=== PATIENT | female | born 1935 | race Caucasian/White ===

== ENCOUNTER 2018-12-14 16:19 | Observation (INO) | payer MEDICARE ==
[2018-12-14 17:51] LABS: CKMB 4.8 ng/mL (0-6.6)
--- NOTE | 2018-12-14 19:35 | PDOC.FPRHP ---
- History of Present Illness Chief Complaint: subjective fevers and SOB History of Present Illness: 83yo F with pmh of afib presents for 1 day hx of sob and subjective fevers. Reports last night she noticed feeling SOB while laying flat on bed. This was alleviated by propping herself up with pillows though she states when she got up out of bed she became dizzy. She has experience moderate dizziness and subjective fevers and chills ever since. Denies that the room is spinning. She also reports that she has had dysuria for 3 days now. She also reports she has only been drinking 3 8oz cups of water per day. ED Course: 1L IVF, UA, 1g rocephin in [place] - Allergies/Adverse Reactions Allergies Allergy/AdvReac Type Severity Reaction Status Date / Time Iodinated Contrast- Oral and Allergy Verified 12/14/18 20:14 IV Dye - Home Medications Medication Instructions Recorded Confirmed Type Aspirin [Aspir-Low] 81 mg PO DAILY 12/14/18 12/14/18 History Calcium Carbonate [Caltrate 600] 1 tab PO DAILY 12/14/18 12/14/18 History Carvedilol 3.125 mg PO DAILY 12/14/18 12/14/18 History Diltiazem HCl [Cardizem] 60 mg PO QID 12/14/18 12/14/18 History Gabapentin 300 mg PO DAILY 12/14/18 12/14/18 History Lisinopril/Hydrochlorothiazide 1 tablet PO BID 12/14/18 12/14/18 History [Lisinopril-Hctz 20-12.5 mg Tab] Polyethylene Glycol 3350 [Miralax] 17 gm PO DAILY PRN 12/14/18 12/14/18 History Simvastatin [Zocor] 1 tab PO DAILY 12/14/18 12/14/18 History - History PMHx: afib, htn, hld, hypothyroid, hx of breast cancer PSHx: R knee, mastectomy, lumpectomy, cattharact FHx: non contributory Social: denies etoh/tobacco/drugs - Review of Systems General: reports: fever/chills, fatigue Eyes: denies: eye pain, vision changes ENT: denies: nasal congestion, rhinorrhea Respiratory: reports: cough (chronic), shortness of breath Cardiovascular: denies: chest pain, palpitation Gastrointestinal: denies: nausea, vomiting, diarrhea, constipation, abdominal pain, GI bleeding Genitourinary: reports: dysuria. denies: incontinence, polyuria, discharge Skin: denies: rashes, lesions Musculoskeletal: denies: pain, tenderness, swelling Neurological: denies: syncope, seizure Psychological: denies: anxiety, depression - Vital signs BP: [143/59] HR: [69] RR: [22 in [place], [address] [facility]] Tmax: [98.6] Pox: [96]% on [ra] Wt: [86] - Physical Exam Constitutional: NAD, awake, alert and oriented HEENT: normocephalic and atraumatic, PERRLA, EOMI, conjunctiva clear, grossly normal vision, TM's clear and intact, grossly normal hearing Neck: supple, trachea midline Chest: no-tender to palpation Heart: RRR, normal S1/S2 Lungs: CTAB, no respiratory distress, good air movement, no wheezing Abdomen: soft, non-tender, bowel sounds present, no masses/distention, no hernias Musculoskeletal: normal structure, normal tone -Musculoskeletal: no meningeal signs Neurological: no focal deficit, normal sensation Skin: no rash/lesions, good turgor, capillary refill <2 seconds Heme/Lymphatic: no unusual bruising or bleeding, no purpura, no petechia Psychiatric: normal mood and affect, good judgment and insight FMR H&P: Results - Labs Lab results: CK-MB (CK-2) 4.8 ng/mL (0-6.6) 12/14/18 16:49 FMR H&P: A/P - Problem List (1) SIRS (systemic inflammatory response syndrome) Current Visit: Yes Status: Acute Code(s): R65.10 - SIRS OF NON-INFECTIOUS ORIGIN W/O ACUTE ORGAN DYSFUNCTION (2) UTI (urinary tract infection) Current Visit: Yes Status: Acute (3) CHANDRA (acute kidney injury) Current Visit: Yes Status: Acute Code(s): N17.9 - ACUTE KIDNEY FAILURE, UNSPECIFIED (4) HTN (hypertension) Current Visit: Yes Status: Acute Code(s): I10 - ESSENTIAL (PRIMARY) HYPERTENSION (5) HLD (hyperlipidemia) Current Visit: Yes Status: Acute Code(s): E78.5 - HYPERLIPIDEMIA, UNSPECIFIED (6) Hypothyroid Current Visit: Yes Status: Acute Code(s): E03.9 - HYPOTHYROIDISM, UNSPECIFIED - Plan SIRS +, without a source vs 2/2 UTI A- Pt was tachypneic at 22 in [place] and has leukocytosis and elevated LA. She is symptomatic for UTI but UA gathered in [place] was dirty catch. Pt received dose of rocephin in [place] so repeat UA and UCx of new sample would be unhelpful. No other clear source of infection at this time. P- UCx of [place] urine sample, call to lab has been made and order put in. - continue rocephin at this time - gently, LR 100/hr - await UCx - procal - flu swab Possible CHF A- Pt has hx of afib but no CHF. Reports orthopnea on hx but does not appear to be fluid overload. P- BNP - will be mindful while giving fluids CHANDRA A- Cr 1.31, pt has been drinking 24fl oz water daily, so likely prerenal P- LR as listed above Afib -home meds HTN -home meds HLD -home meds Hypothyroid -home meds CODE: DNAR Diet: HH Fluids: LR 100/hr FMR H&P: Upper Level - Pertinent history 83 yo WF PMH HTN, HLD, A-fib, breast cancer s/p mastectomy, and colon cancer s/ p resection. Presents with 1 day history of SOB, generalized weakness, decreased PO intake, and dizziness. Reports subjective fever or chills. Reports burning with urination. Denies flu exposure. States her SOB was improved with elevation of the head of the bed. States she normally sleeps on 2 pillows but needed 4 last night. Transferred from [facility] ER when found to have indeterminate troponins. [place] ER: Labs, EKG, CXR, CT-Brain, ASA, Rocephin 1g, APAP 1g, NS 750mL, [place] [facility]: Repeat troponin - Pertinent findings Vitals: max RR 22, otherwise WNL GEN: NAD CV: RRR, 3/6 systolic murmur, Pulm: CTA-B Ext: no edema Labs: WBC 18, Lactate 2.4, Trop 0.040, 0.038, Cr 1.31 CXR: No acute processes CT Brain- No acute processes EKG: NSR - Plan Date/Time: 12/14/181930 I, Milton Celis MD, have evaluated this patient and agree with findings/plan as outlined by internal medicine hospitalist resident. Pertinent changes/additions are listed here. 1. SIRS: No obvious source. Will add culture to urine from [place] ER. Check procalcitonin and influenza swab. IV LR at 100 mL/hr. continue emperic abx of rocephin until culture returns. 2. CHANDRA: IV LR, trend BMP 3. Indeterminate troponin: trend x3, check BNP. 4. See internal medicine hospitalist note for chronic condition management. 5. Diet: HH 6. PPx: Fall 7. CODE: DNR/DNI Dispo: obs, tele, <[address] De León. Addendum - Attending - Attending Attestation Date/Time: 12/14/18 0876 I personally evaluated the patient and discussed the management with Dr. Alcocer. I agree with the History, Examination, Assessment and Plan documented above with any addition or exceptions noted below.
[2018-12-14] MEDS ORDERED: Polyethylene Glycol 3350 17 GM Packet PO PRN (19:55)
[2018-12-14] MEDS: Lactated Ringer's 1,000 ML IV SCH (19:58)
[2018-12-14 20:47] LABS: Troponin I 0.026 ng/mL (< 0.028)
[2018-12-14] MEDS: Lisinopril/Hydrochlorothiazide 20 mg/12.5 mg Tablet PO SCH (21:27)
[2018-12-15] MEDS: Acetaminophen 325 MG TAB PO PRN ×2 (03:04→14:01)
[2018-12-15 05:13] LABS: #Eosinphils 0.1 thou/uL (0.0-0.7); #Lymphocytes 0.9 thou/uL (1.20-3.40); #Monocytes 0.8 thou/uL (0.11-0.59); #Neutrophils 7.3 thou/uL (1.40-6.50); %Basophils 0.2 % (0.0-1.0); %Eosinophils 0.7 % (0.0-10.0); %Lymphocytes 9.6 % (21.0-51.0); %Neutrophils 80.5 % (42.0-75.0); Hemoglobin 10.6 g/dL (12.0-16.0); Mean Corpuscular HGB CONC 32.3 g/dL (32.0-36.0); Mean Corpuscular Hemoglobin 27.8 pg (27.0-31.0); Mean Corpuscular Volume 86.2 fL (78.0-98.0); Mean Platelet Volume 7.9 fL (7.4-10.4); Platelet Count 211 thou/uL (130-400); RBC Distribution Width 14.7 % (11.5-14.5); Red Blood Cell (RBC) Count 3.79 mill/uL (4.20-5.40); White Blood Cell (WBC) Count 9.1 thou/uL (4.8-10.8)
[2018-12-15 05:29] LABS: Anion Gap 14 mmol/L (10-20); BUN (Urea Nitrogen) 18 mg/dL (9.8-20.1); Calc. Creatinine Clearance 72 mL/min (70-130); Calcium 8.5 mg/dL (7.8-10.44); Carbon Dioxide 22 mmol/L (23-31); Chloride 99 mmol/L (98-107); Estimated GFR-MDRD 66; Glucose 86 mg/dL (83-110); Potassium 3.6 mmol/L (3.5-5.1); Sodium 131 mmol/L (136-145)
[2018-12-15] MEDS: Lactated Ringer's 1,000 ML IV SCH (06:16)
--- NOTE | 2018-12-15 06:18 | PDOC.FM ---
- Subjective Subjective: Patient reports feeling much better this AM. Denies any fever/chills, SOB, chest pain, or N/V/D. Does endorse improved dysuria. Also endorses a "sinus headache" that was resolved with tylenol and watery eyes. Says she normally use flonase at home for this. - Objective MAR Reviewed: Yes Vital Signs & Weight: Vital Signs (12 hours) Temp Pulse Resp BP BP BP Pulse Ox 12/15/18 04:00 76 18 146/60 H 92 L 12/14/18 23:38 98.3 F 68 16 134/63 94 L 12/14/18 21:27 70 146/66 H 12/14/18 20:30 146/66 H 12/14/18 19:02 98 F 70 16 186/74 H 94 L Weight Weight 86.183 kg Result Diagrams: 12/15/18 04:37 12/15/18 04:37 Phys Exam - Physical Examination Constitutional: NAD HEENT: moist MMs, oral pharynx no lesions watery eyes on exam Neck: no nodes, supple, full ROM Respiratory: no wheezing, no rales, no rhonchi, clear to auscultation bilateral Cardiovascular: RRR, no significant murmur Musculoskeletal: no edema, pulses present Neurological: non-focal, moves all 4 limbs Psychiatric: normal affect, A&O x 3 Skin: no rash, normal turgor Dx/Plan (1) Elevated brain natriuretic peptide (BNP) level Code(s): R79.89 - OTHER SPECIFIED ABNORMAL FINDINGS OF BLOOD CHEMISTRY Status : Acute (2) Atrial fibrillation Code(s): I48.91 - UNSPECIFIED ATRIAL FIBRILLATION Status: Chronic (3) HLD (hyperlipidemia) Code(s): E78.5 - HYPERLIPIDEMIA, UNSPECIFIED Status: Chronic (4) HTN (hypertension) Code(s): I10 - ESSENTIAL (PRIMARY) HYPERTENSION Status: Chronic (5) Hypothyroid Code(s): E03.9 - HYPOTHYROIDISM, UNSPECIFIED Status: Chronic (6) UTI (urinary tract infection) Status: Acute - Plan Plan: SIRS +, without a source vs. 2/2 UTI - Pt was tachypneic w/ a RR of 22 in [place] w/ leukocytosis of 18 and an elevated LA of 2.6. Afebrile & HD stable since admission. She does report dysuria x 3 days but UA n [place] was reported as a dirty catch. Culture pending. s/p 1 dose of rocephin in [place] as well as 1L of NS. No other clear source of infection at this time. CXR read as negative at outside ED for any consolidation, effusions, etc. Procal 2.13 on admission suggestive of likely sepsis. Will repeat procal & lactate this AM s/p fluids & abx overnight. Flu swab negative. - Will continue rocephin at this time pending repeat procal. - Will encourage increased PO hydration & de-escalate fluids as tolerated by the patient & pending ECHO results as patient could have undiagnosed CHF. - Will monitor vitals closely & continue PRN tylenol for pain &/or fever. Possible CHF - Pt has hx of afib but no CHF. Reports orthopnea on hx but does not appear to be fluid overloaded. Will consider repeat CXR s/p IVFs overnight. - BNP elevated at 224, no values available for comparison. - Will be judicious w/ IV fluids & get an ECHO today. CHANDRA, resolved - Cr 1.31 on admission, likely prerenal from mild volume depletion 2/2 decreased PO intake. WNLs this AM at 0.83 s/p 1L NS bolus & IVFs overnight. - Will consider de-escalating IVFs today & encourage PO intake. Afib -home meds HTN -home meds HLD -home meds Hypothyroid -home meds CODE: DNAR Diet: HH Fluids: LR @ 100/hr Abx: Rocephin (12/14) GI PPx: none DVT PPx: lovenox Addendum - Attending - Attending Attestation Date/Time: 12/15/18 1129 I personally evaluated the patient and discussed the management with Dr. Herrmann. I agree with the History, Examination, Assessment and Plan documented above with any addition or exceptions noted below. The patient's urine culture was pending. Echo is ordered as bnp was elevated. Pt will be transitioned to po antibiotics and f/u with PCP.
[2018-12-15] MEDS ORDERED: Simvastatin 20 MG TAB PO SCH (09:00)
[2018-12-15] MEDS ORDERED: Carvedilol 3.125 MG TAB PO SCH (09:00)
[2018-12-15] MEDS ORDERED: Gabapentin 300 MG CAP PO SCH (09:00)
[2018-12-15] MEDS ORDERED: Atorvastatin Calcium 10 MG TAB PO SCH (09:00)
[2018-12-15] MEDS ORDERED: Enoxaparin Sodium 40 MG/0.4 ML SYRINGE SC SCH (09:00)
[2018-12-15] MEDS ORDERED: Fluticasone Propionate Nasal Spray 16 gm Bottle NASAL SCH (09:00)
[2018-12-15] MEDS ORDERED: Calcium Carbonate 600 MG TAB PO SCH (09:00)
[2018-12-15] MEDS ORDERED: Aspirin 81 mg Enteric Coated Tablet PO SCH (09:00)
--- NOTE | 2018-12-15 09:03 | RAD ---
TWO VIEWS CHEST: HISTORY: Pneumonia. FINDINGS: PA and lateral views of the chest are obtained on 12/15/2018. Comparison is made to previous exam from 12/14/2018. Two views chest demonstrate EKG leads seen over the chest. There is marked osteoporosis seen. No ev idence of effusions, pneumonia, or pneumothorax seen. No evidence of effusions seen. IMPRESSION: No definite evidence of acute intrathoracic abnormality is seen. Surgical clips seen over the right axillary region. The patient has had a previous right-sided mastectomy. POS: ROD
[2018-12-15] MEDS: Lisinopril/Hydrochlorothiazide 20 mg/12.5 mg Tablet PO SCH (09:27)
[2018-12-15 16:31] VITALS: BP 144/63; TEMP 99.2
[2018-12-15] MEDS ORDERED: cefTRIAXone\\ROCEPHIN 1 GM in Sodium Chloride 0.9% 100 ML IVPB SCH (17:00)
--- NOTE | 2018-12-16 14:24 | DIS ---
DATE OF ADMISSION: 12/14/2018 DATE OF DISCHARGE: 12/15/2018 RESIDENT: Dana Herrmann MD ADMITTING ATTENDING: Franco De León MD DISCHARGE ATTENDING: Louisa Cash MD CONSULTS: None. PROCEDURES: 1. Brain CT on 12/14/2018, which showed no CT evidence of an acute intracranial process. 2. Chest x-ray on 12/14/2018, which showed no evidence of acute cardiopulmonary disease. 3. Chest x-ray on 12/15/2018, which showed no definite evidence of acute intrathoracic abnormality. 4. Echocardiogram on 12/15/2018, which showed an estimated ejection fraction of 55% to 60% with a mildly dilated left atrium. Impaired relaxation compatible with diastolic dysfunction was also noted with mild mitral, aortic, and tricuspid valve regurgitation. Aortic valve leaflets were also noted to be somewhat thickened. PRIMARY DIAGNOSES: 1. Sepsis secondary to urinary tract infection. 2. Possible congestive heart failure. 3. Acute kidney injury, secondary to mild volume depletion. 4. Chronic atrial fibrillation. 5. Indeterminately elevated troponin. 6. Elevated lactate. SECONDARY DIAGNOSES: 1. Chronic atrial fibrillation. 2. Hypertension. 3. Hyperlipidemia. 4. Hypothyroidism. DISCHARGE MEDICATIONS: 1. MiraLAX 17 g p.o. daily p.r.n. 2. Lisinopril/HCTZ 20/12.5 mg tablets, 1 tab p.o. b.i.d. 3. Simvastatin 20 mg p.o. daily. 4. Gabapentin 300 mg p.o. daily. 5. Cardizem 60 mg p.o. q.i.d. 6. Carvedilol 3.125 mg p.o. daily. 7. Calcium carbonate 1 tab p.o. daily, 600 mg tab. 8. Aspirin 81 mg p.o. daily. 9. Bactrim DS 1 tablet p.o. b.i.d. for 3 days. DISCONTINUED MEDICATIONS: None. HOSPITAL COURSE: The patient is an 83-year-old female with a past medical history significant for hypertension and chronic atrial fibrillation, who presented to the emergency department with a 1-day history of progressively worsening shortness of breath with associated fever and lightheadedness, as well as dysuria for approximately 3 days prior to presentation. The patient initially presented to the [facility], where she was noted to be hypertensive with a blood pressure of 150/76 and was eventually tachypneic, breathing approximately 22 times a minute. Vitals were otherwise within normal limits. Routine lab work was obtained including CBC, CMP and UA, which were significant for elevated white blood cell count of 18, elevated lactic acid level of 2.4, BUN and creatinine of 26 and 1.31, and indeterminately elevated troponin of 0.048. Urinalysis was remarkable for trace of blood, small leukocyte esterase, 4 to 6 squamous cells, and rare to few bacteria. In addition, chest x-ray and brain CT were obtained, both of which were negative for any acute processes. The patient was therefore determined to be septic or have positive SIRS criteria in the presence of a likely UTI and was therefore transferred to [facility] for further evaluation. On presentation to the [facility], the patient's vitals were noted to be within normal limits with the exception of a mildly elevated blood pressure and additional labs including BNP and procalcitonin were ordered, both of which were elevated at 224 and 2.13. The patient received 1 L of IV fluids and 1 g of Rocephin in the [facility] before transfer, so fluids were therefore continued with lactated Ringer's at 100 mL an hour. The patient was admitted for close observation overnight for possible sepsis secondary to UTI. The following morning, the patient was scheduled to receive a repeat chest x-ray and echocardiogram was ordered to assess for any possible CHF as the patient endorsed shortness of breath or orthopnea. A repeat chest x-ray did not show any acute process and her echocardiogram did note some likely diastolic dysfunction with an EF of 55% to 60%. Also, of note, the patient's lab abnormalities had significantly improved after receiving IV fluids overnight including troponin of 0.026 within normal limits, procalcitonin level of 1.62, and BUN and creatinine of 18 and 0.83. Her IV fluids were therefore discontinued and after getting her echocardiogram, the patient requested to be discharged home with close followup with her PCP. Therefore, due to the patient's request and the fact that she was hemodynamically stable and her lab abnormalities had significantly improved, she was discharged home on p.o. antibiotics for 3 days pending the results of her urine culture. Of note, the patient's urine culture results resulted on 12/18/2018 and were notable for 75,000 to 200,000 CFU's of mixed skin and enteric edda. No sensitivities were reported. DISCHARGE INSTRUCTIONS: 1. Location: Home. 2. Diet: Heart healthy diet. 3. Activity: As tolerated. No restrictions. 4. Followup: The patient was instructed to follow up with her primary care provider, Dr. Miki Blackwell within 1 week of discharge. Job ID: [id number]
--- NOTE | 2018-12-17 21:00 | EKG ---
Test Reason : Blood Pressure : / mmHG Vent. Rate : 068 BPM Atrial Rate : 068 BPM P-R Int : 206 ms QRS Dur : 064 ms QT Int : 410 ms P-R-T Axes : 070 -02 024 degrees QTc Int : 435 ms Normal sinus rhythm Septal infarct , age undetermined Abnormal ECG Confirmed by LUIS MANUEL LEON, CONSTANTINE Valladares ([id number]), web content editor KASSIE FLORES ([id number]) on 12/17/2018 9:00:28 PM Referred By: Confirmed By:CONSTANTINE ISSA MD
== END 2018-12-15 16:56 | disposition home or self-care (01) ==
LOC: ERS 16:19 → 2SW 17:07
PROVIDERS: ADMIT Family Medicine; ATTEND Family Medicine
DX: R65.10 Systemic inflammatory response syndrome (SIRS) of non-infectious origin without acute organ dysfunction (principal); N39.0 Urinary tract infection, site not specified; I48.91 Unspecified atrial fibrillation; I10 Essential (primary) hypertension; E78.5 Hyperlipidemia, unspecified; E03.9 Hypothyroidism, unspecified; N17.9 Acute kidney failure, unspecified; R79.89 Other specified abnormal findings of blood chemistry; Z66 Do not resuscitate; Z79.82 Long term (current) use of aspirin; Z79.899 Other long term (current) drug therapy; Z91.041 Radiographic dye allergy status
CPT/HCPCS: 71046; 80048; 82553; 83880; 84145 ×2; 84484; 85025; 87804 ×2; 93005; 93306; 96360; 96361 ×2; 96372; 99285; G0378 ×2; 36415; J1650

== ENCOUNTER 2022-07-24 08:21 | Outpatient (CLI) | payer MEDICARE | END 2022-07-24 08:22 | disposition home or self-care (01) | LOC: NM 08:21 | PROVIDERS: ATTEND Family Medicine | DX: K80.20 Calculus of gallbladder without cholecystitis without obstruction (principal); R94.8 Abnormal results of function studies of other organs and systems | CPT/HCPCS: 78227; A9537 ==